=== PATIENT | male | born 1985 | race African-American/Black ===

== ENCOUNTER 2016-05-04 12:20 | Emergency (ER) | payer SELFPAY ==
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
[2016-05-04 14:27] VITALS: BP 151/99
== END 2016-05-04 14:23 | disposition home or self-care (01) ==
LOC: ER 12:20
DX: S09.90XA Unspecified injury of head, initial encounter (principal); R55 Syncope and collapse; M54.9 Dorsalgia, unspecified; M54.2 Cervicalgia; F17.210 Nicotine dependence, cigarettes, uncomplicated; V86.99XA Unspecified occupant of other special all-terrain or other off-road motor vehicle injured in nontraffic accident, initial encounter
CPT/HCPCS: 70450; 99283

== ENCOUNTER 2016-08-24 18:27 | Emergency (ER) | payer OTHER ==
[2016-08-24] MEDS ORDERED: OXYCODONE-ACETAMINOPHEN 5-325 MG TABLET PO ONE (19:42)
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
[2016-08-24] MEDS ORDERED: HYDROCODONE/ACETAMINOPHEN 5-325 MG 6 TAB/DSPK PO PRN (20:36)
[2016-08-24 20:48] VITALS: BP 162/94
== END 2016-08-24 20:50 | disposition home or self-care (01) ==
LOC: ER 18:27
DX: M25.532 Pain in left wrist (principal); R07.81 Pleurodynia; M54.2 Cervicalgia; R51 Headache; M79.642 Pain in left hand; M25.512 Pain in left shoulder; M54.6 Pain in thoracic spine; V03.99XA Pedestrian with other conveyance injured in collision with car, pick-up truck or van, unspecified whether traffic or nontraffic accident, initial encounter
CPT/HCPCS: 99284; 72050; 71101; 73030; 73110; L0120

== ENCOUNTER 2016-09-26 18:19 | Emergency (ER) | payer OTHER ==
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
[2016-09-26] MEDS ORDERED: IBUPROFEN 800 MG TABLET PO ONE (20:40)
[2016-09-26 20:53] VITALS: BP 127/77
== END 2016-09-26 20:52 | disposition home or self-care (01) ==
LOC: ER 18:19
DX: M79.642 Pain in left hand (principal); F17.200 Nicotine dependence, unspecified, uncomplicated
CPT/HCPCS: 99283

== ENCOUNTER 2017-02-19 20:29 | Emergency (ER) | payer OTHER ==
[2017-02-19 20:39] VITALS: BP 177/108
== END 2017-02-19 22:30 | disposition left against medical advice (07) ==
LOC: ER 20:29
DX: Z53.21 Procedure and treatment not carried out due to patient leaving prior to being seen by health care provider (principal)

== ENCOUNTER 2017-05-21 19:21 | Emergency (ER) | payer OTHER ==
[2017-05-21 21:03] LABS: ABSOLUTE BASOPHILS # (AUTO) 0.1 10^3/uL (0.0-0.2); ABSOLUTE LYMPHOCYTES (AUTO) 1.8 10^3/uL (0.5-4.7); ABSOLUTE MONOCYTES (AUTO) 0.5 10^3/uL (0.1-1.4); ABSOLUTE NEUT (AUTO) 4.9 10^3/uL (1.7-8.2); BASOPHILS % (AUTO) 1.3 % (0-2); EOSINOPHILS % (AUTO) 0.3 % (0-6); HEMATOCRIT 42.4 % (37.9-51.0); HEMOGLOBIN 14.7 g/dL (13.5-17.0); LYMPHOCYTES % (AUTO) 24.3 % (13-45); MEAN CORPUSCULAR HEMOGLOBIN 30.8 pg (27.0-33.4); MEAN CORPUSCULAR HGB CONC 34.7 g/dL (32.0-36.0); MEAN CORPUSCULAR VOLUME 89 fl (80-97); MONOCYTES % (AUTO) 6.5 % (3-13); PLATELET COUNT 222 10^3/uL (150-450); RED BLOOD COUNT 4.76 10^6/uL (4.35-5.55); RED CELL DISTRIBUTION WIDTH 13.3 % (11.5-14.0); SEGMENTED NEUTROPHILS % (AUTO) 67.6 % (42-78); TOTAL CELLS COUNTED % (AUTO) 100 %; WHITE BLOOD COUNT 7.3 10^3/uL (4.0-10.5)
[2017-05-21 21:18] LABS: ALANINE AMINOTRANSFERASE 32 U/L (21-72); ALBUMIN 4.6 g/dL (3.5-5.0); ALKALINE PHOSPHATASE 63 U/L (38-126); ANION GAP 8 (5-19); ASPARTATE AMINO TRANSFERASE 42 U/L (17-59); BILIRUBIN,DIRECT 0.2 mg/dL (0.0-0.4); BILIRUBIN,TOTAL 0.7 mg/dL (0.2-1.3); BLOOD UREA NITROGEN 14 mg/dL (7-20); CALCIUM 9.8 mg/dL (8.4-10.2); CARBON DIOXIDE 27 mmol/L (22-30); CHLORIDE 101 mmol/L (98-107); GLUCOSE 114 mg/dL (75-110); POTASSIUM 3.5 mmol/L (3.6-5.0); SODIUM 136.3 mmol/L (137-145); TOTAL PROTEIN 7.7 g/dL (6.3-8.2)
[2017-05-21 21:19] LABS: ACETAMINOPHEN < 10 ug/mL (10-30); ALCOHOL < 10 mg/dL (NONE DETECTED); SALICYLATE < 1.0 mg/dL (2.0-20.0)
[2017-05-21] MEDS ORDERED: ONDANSETRON 4 MG TAB.RAPDIS PO ONE (21:27)
[2017-05-21] MEDS ORDERED: GABAPENTIN 300 MG CAPSULE PO ONE (21:27)
[2017-05-21] MEDS ORDERED: CLONIDINE 0.2 MG/24 HR PATCH.TDWK TD ONE (21:27)
--- NOTE | 2017-05-21 21:27 | ER Document Report ---
ED General - General Chief Complaint: Suicidal Ideation Stated Complaint: WITHDRAWL Time Seen by Provider: 05/21/17 20:33 Notes: Patient is a 31-year-old male who presents with concerns of acute suicidal ideation with associated concern of opiate withdrawal. Patient states that he is trying to come off heroin, last used approximately 12 hours prior to arrival. He has a plan to kill himself by overdosing on opiate pain meds. He states that what prompted him to become suicidal today was that his former girlfriend with whom he currently lives told him he should overdose and to make everyone else happy. Patient denies any prior suicidal ideation or any history of psychiatric illness. He notes that he try to get high on opiates to feel better after she said what she had said but he notes that even worsened his depression and made him more convinced that he should kill himself. He does admit to currently feel suicidal. He does note that he feels that he is withdrawing from opiates with shakiness, headache, nausea but no vomiting. Nothing improves or worsens his symptoms. He does not have a primary care doctor with whom he can follow-up. TRAVEL OUTSIDE OF THE [place] IN LAST 30 DAYS: No - Related Data Allergies/Adverse Reactions: tramadol Allergy (Verified 05/21/17 19:25) vasoline Adverse Reaction (Uncoded 09/26/16 19:12) Past Medical History - General Information source: Patient - Social History Smoking Status: Current Every Day Smoker Frequency of alcohol use: None Drug Abuse: Prescription drugs Lives with: Friend Family History: Reviewed & Not Pertinent, Hypertension Patient has suicidal ideation: Yes Patient has homicidal ideation: No - Past Medical History Cardiac Medical History: Reports: Hx Hypertension Neurological Medical History: Reports: Hx Seizures Renal/ Medical History: Denies: Hx Peritoneal Dialysis Psychiatric Medical History: Reports: Hx Bipolar Disorder - Immunizations Hx Diphtheria, Pertussis, Tetanus Vaccination: Yes Review of Systems - Review of Systems Notes: Constitutional: Negative for fever. HENT: Negative for sore throat. Eyes: Negative for visual changes. Cardiovascular: Negative for chest pain. Respiratory: Negative for shortness of breath. Gastrointestinal: Positive for nausea Genitourinary: Negative for dysuria. Musculoskeletal: Positive for body aches Skin: Negative for rash. Neurological: Negative for headaches, weakness or numbness. 10 point ROS negative except as marked above and in HPI. Physical Exam - Vital signs Vitals: Temp Pulse Resp BP Pulse Ox 98.2 F 65 22 H 186/124 H 98 05/21/17 19:34 05/21/17 19:34 05/21/17 19:34 05/21/17 19:34 05/21/17 19:34 Interpretation: Hypertensive Notes: PHYSICAL EXAMINATION: GENERAL: Appears moderately uncomfortable but in no acute distress HEAD: Atraumatic, normocephalic. EYES: Pupils equal round and reactive to light, extraocular movements intact, sclera anicteric, conjunctiva are normal. ENT: nares patent, oropharynx clear without exudates. Moderately dry mucous membranes. NECK: Normal range of motion, supple without lymphadenopathy LUNGS: Breath sounds clear to auscultation bilaterally and equal. No wheezes rales or rhonchi. HEART: Regular rate and rhythm without murmurs ABDOMEN: Soft, nontender, normoactive bowel sounds. No guarding, no rebound. No masses appreciated. EXTREMITIES: Normal range of motion, no pitting or edema. No cyanosis. NEUROLOGICAL: No focal neurological deficits. Moves all extremities spontaneously and on command. PSYCH: Poor eye contact, somewhat anxious. SKIN: Warm, Dry, normal turgor, no rashes or lesions noted. Course - Re-evaluation Re-evalutation: 05/21/17 21:26 Patient presents with acute suicidal ideation with a plan to overdose on heroin. Patient has long-standing opiate addict, does admit last use was at approximately 10 AM this morning and is having withdrawal symptoms. Patient admits that his suicidal ideation is more passive, he notes his son is a preventative factor from him completing suicide. He has no prior attempts or psychiatric history. In regards to the patient's opiate withdrawal: He is complaining of generalized body aches, nausea, and headache. He states this feels the same as when he had opiate withdrawal in the past. Given that he is having passive suicidal ideation and is asking to speak with mental health resources, will maintain him here in the emergency department until the morning and psychiatry can evaluate him. He will be symptomatically treated while he is here in the emergency department with clonidine, gabapentin, and acetaminophen. - Vital Signs Vital signs: Temp Pulse Resp BP Pulse Ox 98.2 F 65 22 H 186/124 H 98 05/21/17 19:34 05/21/17 19:34 05/21/17 19:34 05/21/17 19:34 05/21/17 19:34 - Laboratory Result Diagrams: 05/21/17 20:55 05/21/17 20:55 Laboratory results interpreted by me: 05/21/17 05/21/17 20:55 21:30 Sodium 136.3 L Potassium 3.5 L Glucose 114 H Urine Urobilinogen 2.0 H Salicylates < 1.0 L Acetaminophen < 10 L - EKG Interpretation by Me Additional EKG results interpreted by me: 05/22/17 02:14 Sinus rhythm. Rate 69. No ST elevations or depressions. QTC is 433. Discharge - Discharge Clinical Impression: Suicidal ideation Opiate dependence Qualifiers: Substance use status: in withdrawal Qualified Code(s): F11.23 - Opioid dependence with withdrawal Condition: Fair Disposition: PSYCH HOSP/UNIT
[2017-05-21 21:57] LABS: APPEARANCE,URINE CLEAR; BILIRUBIN,URINE NEGATIVE (NEGATIVE); COLOR,URINE YELLOW; GLUCOSE, URINE NEGATIVE (NEGATIVE); KETONES,URINE NEGATIVE (NEGATIVE); LEUKOCYTE ESTERASE,URINE NEGATIVE (NEGATIVE); NITRITE,URINE NEGATIVE (NEGATIVE); PROTEIN,URINE NEGATIVE (NEGATIVE); URINE SPECIFIC GRAVITY 1.012
[2017-05-21 22:13] LABS: URINE AMPHETAMINES SCREEN NEGATIVE; URINE BARBITURATES SCREEN NEGATIVE; URINE BENZODIAZEPINES SCREEN NEGATIVE; URINE COCAINE SCREEN NEGATIVE; URINE MARIJUANA (THC) SCREEN UNCONFIRMED POSITIVE; URINE METHADONE SCREEN NEGATIVE; URINE PHENCYCLIDINE SCREEN NEGATIVE
[2017-05-22] MEDS ORDERED: LISINOPRIL 10 MG TABLET PO ONE (07:00)
--- NOTE | 2017-05-22 07:41 | EKG REPORT ---
SEVERITY:- BORDERLINE ECG - SINUS RHYTHM PROBABLE LEFT ATRIAL ABNORMALITY MINIMAL ST ELEVATION, ANTERIOR LEADS : Confirmed by: Thompson Zuñiga MD 22-May-2017 07:41:07
--- NOTE | 2017-05-22 09:08 | ER Document Report ---
Doctor's Note Notes: 05/22/17 09:18 31-year-old male. History of alcohol abuse. History of mental health disorders. Please see previous physician's note for further details. Pending evaluation with regards to possible medication treatment at this time. Anticipate patient will need inpatient treatment. We will continue to follow. Please see mental health note for further details. Vital signs stable. Will continue to follow today. 05/22/17 10:35 The patient has been accepted at the [facility]. Has a ride. Will DC at this time.
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
[2017-05-22 10:49] VITALS: BP 169/107
[2017-05-23] MEDS ORDERED: LISINOPRIL 10 MG TABLET PO SCH (08:00)
== END 2017-05-22 10:50 | disposition home or self-care (01) ==
LOC: ER 19:21
DX: R45.851 Suicidal ideations (principal); F11.23 Opioid dependence with withdrawal; R11.0 Nausea; R51 Headache; F17.200 Nicotine dependence, unspecified, uncomplicated
CPT/HCPCS: 93005; 99285; 36415; 80307 ×4; 85025; 80053; 81001; 93010; S0119; J3490